=== PATIENT | male | born 1995 | race Caucasian/White ===

== ENCOUNTER 2018-03-11 17:50 | Emergency (ER) | payer OTHER ==
[~2018-03-11] VITALS: Ht 180.3 cm; Wt 104.5 kg
[2018-03-11] MEDS ORDERED: CITA20TA4 PO (18:00)
[2018-03-11 19:23] LABS: HEMATOCRIT 47.3 % (42.0-52.0); HEMOGLOBIN 16.8 g/dl (13.5-17.5); MEAN CORPUSCULAR HEMOGLOBIN 31.1 pg (27.0-33.0); MEAN CORPUSCULAR HGB CONC 35.5 g/dl (32.0-36.5); MEAN CORPUSCULAR VOLUME 87.4 fl (80.0-96.0); PLATELET COUNT, AUTOMATED 228 10^3/uL (150-450); RED BLOOD COUNT 5.41 10^6/uL (4.30-6.10); WHITE BLOOD COUNT 9.9 10^3/uL (4.0-10.0)
[2018-03-11 20:03] LABS: AMPHETAMINES LEVEL URINE NEGATIVE (NEGATIVE); BARBITURATES URINE NEGATIVE (NEGATIVE); BENZODIAZEPINES URINE NEGATIVE (NEGATIVE); CANNABINOIDS URINE NEGATIVE (NEGATIVE); COCAINE METABOLITE URINE NEGATIVE (NEGATIVE); METHADONE URINE NEGATIVE (NEGATIVE); OPIATES URINE NEGATIVE (NEGATIVE); PHENCYCLIDINE URINE NEGATIVE (NEGATIVE)
[2018-03-11 20:05] LABS: ACETAMINOPHEN LEVEL < 2.0 UG/ML (10.0-30.0); ALBUMIN 4.2 GM/DL (3.2-5.2); ALT/SGPT 26 U/L (12-78); BILIRUBIN,DIRECT 0.3 MG/DL (0.0-0.2); BILIRUBIN,TOTAL 0.9 MG/DL (0.2-1.0); BLOOD UREA NITROGEN 8 MG/DL (7-18); CALCIUM LEVEL 8.9 MG/DL (8.5-10.1); CARBON DIOXIDE LEVEL 26 MEQ/L (21-32); CHLORIDE LEVEL 106 MEQ/L (98-107); CREATININE FOR GFR 0.74 MG/DL (0.70-1.30); ETHYL ALCOHOL (ETHANOL) < 0.003 % (0.000-0.010); GLOMERULAR FILTRATION RATE > 60.0 (>60); GLUCOSE, FASTING 81 MG/DL (70-100); POTASSIUM SERUM 4.2 MEQ/L (3.5-5.1); SALICYLATE LEVEL < 1.7 MG/DL (5.0-30.0); SODIUM LEVEL 139 MEQ/L (136-145); THYROID STIMULATING HORMONE 0.425 uIU/ML (0.358-3.740); TOTAL PROTEIN 7.4 GM/DL (6.4-8.2)
[2018-03-11 21:04] VITALS: BP 145/95
== END 2018-03-11 21:09 | disposition home or self-care (01) ==
LOC: M ED 17:50
DX: F39 Unspecified mood [affective] disorder (principal); Z79.899 Other long term (current) drug therapy; J30.2 Other seasonal allergic rhinitis; J30.81 Allergic rhinitis due to animal (cat) (dog) hair and dander; F17.210 Nicotine dependence, cigarettes, uncomplicated
CPT/HCPCS: 36415; 80048; 80076; 80307; 84443; 85027; 99284; G0480

== ENCOUNTER 2018-03-14 21:14 | Emergency (ER) | payer OTHER ==
[~2018-03-14] VITALS: Ht 188 cm; Wt 106.8 kg
[~2018-03-14 21:14] MED LIST: CITA20TA4 PO
[2018-03-14 22:03] LABS: HEMATOCRIT 47.8 % (42.0-52.0); MEAN CORPUSCULAR HEMOGLOBIN 31.4 pg (27.0-33.0); MEAN CORPUSCULAR HGB CONC 35.6 g/dl (32.0-36.5); MEAN CORPUSCULAR VOLUME 88.4 fl (80.0-96.0); PLATELET COUNT, AUTOMATED 228 10^3/uL (150-450); RED BLOOD COUNT 5.41 10^6/uL (4.30-6.10); WHITE BLOOD COUNT 9.8 10^3/uL (4.0-10.0)
[2018-03-14 22:29] LABS: AMPHETAMINES LEVEL URINE NEGATIVE (NEGATIVE); BARBITURATES URINE NEGATIVE (NEGATIVE); BENZODIAZEPINES URINE NEGATIVE (NEGATIVE); CANNABINOIDS URINE NEGATIVE (NEGATIVE); COCAINE METABOLITE URINE NEGATIVE (NEGATIVE); METHADONE URINE NEGATIVE (NEGATIVE); OPIATES URINE NEGATIVE (NEGATIVE); PHENCYCLIDINE URINE NEGATIVE (NEGATIVE)
[2018-03-14 22:48] LABS: BLOOD UREA NITROGEN 11 MG/DL (7-18); CALCIUM LEVEL 8.4 MG/DL (8.5-10.1); CARBON DIOXIDE LEVEL 26 MEQ/L (21-32); CHLORIDE LEVEL 105 MEQ/L (98-107); CREATININE FOR GFR 0.74 MG/DL (0.70-1.30); GLOMERULAR FILTRATION RATE > 60.0 (>60); GLUCOSE, FASTING 85 MG/DL (70-100); POTASSIUM SERUM 3.9 MEQ/L (3.5-5.1); SODIUM LEVEL 140 MEQ/L (136-145)
[2018-03-14 22:49] LABS: ACETAMINOPHEN LEVEL < 2.0 UG/ML (10.0-30.0); ALBUMIN 3.8 GM/DL (3.2-5.2); ALT/SGPT 29 U/L (12-78); BILIRUBIN,DIRECT 0.2 MG/DL (0.0-0.2); BILIRUBIN,TOTAL 0.5 MG/DL (0.2-1.0); ETHYL ALCOHOL (ETHANOL) < 0.003 % (0.000-0.010); SALICYLATE LEVEL < 1.7 MG/DL (5.0-30.0); TOTAL PROTEIN 7.3 GM/DL (6.4-8.2)
[2018-03-15 02:08] VITALS: BP 133/77
--- NOTE | 2018-03-16 17:22 | ECGEPIP ---
Stationary ECG Study [facility] - ED Test Date: 2018-03-14 Pat Name: NORMA CHAMBERS Department: Room: - Gender: M Agriculture Worker: : 1995 Requested By: CATALINA JIMENEZ Order Number: [id number] Reading MD: Ana Cortes Measurements Intervals Shanks Rate: 74 P: 61 UT: 174 QRS: 56 QRSD: 105 T: 37 QT: 361 QTc: 401 Interpretive Statements SINUS RHYTHM WITH SINUS ARRHYTHMIA INCOMPLETE RIGHT BUNDLE BRANCH BLOCK ST ELEVATION, PROBABLY EARLY REPOLARIZATION, CLINICAL CORRELATION NO PRIOR FOR COMPARISON Electronically Signed On 03-16-2018 17:22:54 EST by Ana Cortes
== END 2018-03-15 02:12 | disposition short-term general hospital (02) ==
LOC: M ED 21:14
DX: F32.9 Major depressive disorder, single episode, unspecified (principal); R45.851 Suicidal ideations; F17.200 Nicotine dependence, unspecified, uncomplicated; Z91.048 Other nonmedicinal substance allergy status; Z79.899 Other long term (current) drug therapy
CPT/HCPCS: 80048; 80076; 80307; 84443; 85027; 93005; 99284; G0480

== ENCOUNTER 2018-05-29 19:56 | Emergency (ER) | payer OTHER ==
[~2018-05-29] VITALS: Ht 180.3 cm; Wt 109.1 kg
[~2018-05-29 19:56] MED LIST changes: -CITA20TA4 PO; +CITA20TA6 PO
[2018-05-29] MEDS ORDERED: ONDANSETRON 4MG/2ML VIAL (J2405) IV ONE (20:30)
[2018-05-29] MEDS ORDERED: KETOROLAC 30 MG/ML VIAL (J1885) IV ONE (20:30)
[2018-05-29 20:37] LABS: BASO # 0.1 10^3/uL (0.0-0.2); EOS # 0.5 10^3/uL (0.0-0.50); HEMATOCRIT 45.7 % (42.0-52.0); HEMOGLOBIN 15.6 g/dl (13.5-17.5); LYMPH # 2.5 10^3/uL (1.5-6.5); LYMPH % 27.3 % (24.0-44.0); MEAN CORPUSCULAR HEMOGLOBIN 30.6 pg (27.0-33.0); MEAN CORPUSCULAR HGB CONC 34.1 g/dl (32.0-36.5); MEAN CORPUSCULAR VOLUME 89.6 fl (80.0-96.0); MONO # 0.6 10^3/uL (0.0-0.8); MONO % 6.3 % (0.0-5.0); NEUTROPHILS # 5.4 10^3/uL (1.8-7.7); NEUTROPHILS % 59.1 % (36.0-66.0); PLATELET COUNT, AUTOMATED 262 10^3/uL (150-450); WHITE BLOOD COUNT 9.1 10^3/uL (4.0-10.0)
[2018-05-29 21:08] LABS: ALBUMIN 4.4 GM/DL (3.2-5.2); ALT/SGPT 24 U/L (12-78); BILIRUBIN,TOTAL 0.6 MG/DL (0.2-1.0); BLOOD UREA NITROGEN 12 MG/DL (7-18); CALCIUM LEVEL 9.1 MG/DL (8.5-10.1); CARBON DIOXIDE LEVEL 28 MEQ/L (21-32); CHLORIDE LEVEL 106 MEQ/L (98-107); CREATININE FOR GFR 1.03 MG/DL (0.70-1.30); GLOMERULAR FILTRATION RATE > 60.0 (>60); GLUCOSE, FASTING 100 MG/DL (70-100); POTASSIUM SERUM 3.8 MEQ/L (3.5-5.1); SODIUM LEVEL 142 MEQ/L (136-145); TOTAL PROTEIN 7.6 GM/DL (6.4-8.2)
--- NOTE | 2018-05-29 21:57 | REPVR ---
EXAM: CT Abdomen and Pelvis Without Contrast EXAM DATE/TIME: 05/29/2018 8:40 PM CLINICAL HISTORY: 22 years old, male; Pain; Abdominal pain; Generalized; Additional info: Left flank pain; R/O stone TECHNIQUE: Imaging protocol: Axial computed tomography images of the abdomen and pelvis without contrast. Coronal and sagittal reformatted images were created and reviewed. Radiation optimization: All CT scans at this facility use at least one of these dose optimization techniques: automated exposure control; mA and/or kV adjustment per patient size (includes targeted exams where dose is matched to clinical indication); or iterative reconstruction. COMPARISON: No relevant prior studies available. FINDINGS: Lower thorax: No acute findings. ABDOMEN: Liver: Normal. No mass. Gallbladder and bile ducts: Normal. No calcified stones. No ductal dilation. Pancreas: Normal. No ductal dilation. Spleen: Normal. No splenomegaly. Adrenals: Normal. No mass. Kidneys and ureters: Mild left hydronephrosis and minimal hydroureter with some periureteral edema which extends to the left UVJ and a 2 mm calculus. Stomach and bowel: Normal. No obstruction. No mucosal thickening. Appendix: A normal appendix is seen extending adjacent to the hepatic tip. PELVIS: Bladder: There is bladder wall thickening, however, the bladder is nondistended and is nonspecific. Reproductive: Unremarkable as visualized. ABDOMEN and PELVIS: Intraperitoneal space: Normal. No free air. No significant fluid collection. Bones/joints: Slight anterior wedge configuration of T11 and T12 which are probably developmental. Soft tissues: Unremarkable. Vasculature: Normal. No abdominal aortic aneurysm. Lymph nodes: Normal. No enlarged lymph nodes. IMPRESSION: 1. 2 mm left UVJ calculus with secondary obstructive uropathy of the left upper tract. 2. Otherwise negative CT abdomen/pelvis. Electronically signed by: Say Leone On 05/29/2018 21:57:16 PM
[2018-05-29] MEDS ORDERED: ONDA4TAB6 PO (22:25)
[2018-05-29] MEDS ORDERED: PERC5TAB12 PO (22:25)
[2018-05-29] MEDS ORDERED: FLOM0.4C39 PO (22:25)
[2018-05-29 22:30] VITALS: BP 140/78
[2018-05-29] MEDS ORDERED: ONDANSETRON 4 MG ORAL DISINTEGRATING TAB (Q0162 PER 1MG) PO ONE (22:30)
[2018-05-29] MEDS ORDERED: OXYCODONE/APAP 5MG/325MG(BULK FOR ED) 1 TABLET PO ONE (22:30)
[2018-05-29] MEDS ORDERED: TAMSULOSIN 0.4 MG CAP PO ONE (22:30)
== END 2018-05-29 23:44 | disposition home or self-care (01) ==
LOC: M ED 19:56
DX: N20.1 Calculus of ureter (principal); F33.9 Major depressive disorder, recurrent, unspecified; F43.10 Post-traumatic stress disorder, unspecified; J30.2 Other seasonal allergic rhinitis; J30.81 Allergic rhinitis due to animal (cat) (dog) hair and dander
CPT/HCPCS: 74176; 80053; 81001; 85025; 96374; 96375; 99284; J1885; J2405; Q0162